=== PATIENT | female | born 1980 | race Caucasian/White ===

== ENCOUNTER 2020-11-22 15:14 | Emergency (ER) | payer OTHER, SELFPAY ==
[2020-11-22 15:20] VITALS: BP 124/76; PULSE 105; RESP 16; TEMP 36.6; O2SAT 99
--- NOTE | 2020-11-22 15:39 | ED.HA ---
HPI - Headache General Chief Complaint: Headache Stated Complaint: migraine Time Seen by Provider: 11/22/20 15:41 History of Present Illness HPI Narrative: 39-year-old female patient with a longstanding history of migraine headaches presents to ER with 3 day history of migraine. She describes this headache is a typical migraine which is diffuse and is associated with nausea but no emesis. The patient has apparently been under care of a neurologist in [place] and has received Botox injections in the past. She states that because of some insurance conflicts she is not receiving them right now and hence is on a more vague once a month. In addition to that the patient has also been taking hydrocodone and baclofen and was seen recently at another facility where she was given Toradol and diphenhydramine but eventually ended up having a prescription for tramadol and Fioricet and Medrol Dosepak by her neurologist. The patient describes the pain as continuous and rates that at 10/10. She does report mild photophobia. She denies any phonophobia. Patient is a smoker. Patient denies any COVID exposure,. patient has not received COVID vaccinations so far Related Data Home Medications Medication Instructions Recorded Confirmed albuterol sulfate 2 puff INHALATION PRN 11/22/20 11/22/20 baclofen 20 mg PO PRN PRN 11/22/20 11/22/20 kutuwsqkad-hcecwesoqzovy-nefs 2 cap PO Q8-10H PRN 11/22/20 11/22/20 clonazepam 2 mg PO PRN 11/22/20 11/22/20 erenumab-aooe [Aimovig 70 mg SUBCUT MONTHLY 11/22/20 11/22/20 Autoinjector] hydrochlorothiazide 25 mg PO DAILY 11/22/20 11/22/20 hydrocodone-acetaminophen 1 tablet PO Q4-5H PRN 11/22/20 11/22/20 losartan 100 mg PO DAILY 11/22/20 11/22/20 methylprednisolone 4 mg PO DAILY 11/22/20 11/22/20 tramadol 100 mg PO Q8-10H PRN 11/22/20 11/22/20 trazodone 150 mg PO HS PRN 11/22/20 11/22/20 venlafaxine 75 mg PO DAILY 11/22/20 11/22/20 venlafaxine 150 mg PO DAILY 11/22/20 11/22/20 Allergies Allergy/AdvReac Type Severity Reaction Status Date / Time Penicillins Allergy Unknown Unknown Verified 11/22/20 15:38 gabapentin Allergy Hallucinati Verified 11/22/20 15:38 ng risperidone Allergy Unknown Verified 11/22/20 15:38 Review of Systems Review of Systems: All systems reviewed & are unremarkable except as noted in HPI and below PMFSH Past Medical History Medical History (Updated 11/22/20 @ 15:54 by Rozina Escobar MD) Anxiety Hypertension Migraine Family History Family History Mother Hypertension Cerebrovascular accident Social History Social History Second hand tobacco smoke exposure: No Smoking end date: 05/07/11 Alcohol intake: never Exam Narrative: Exam Narrative: Patient is alert and appears in no acute distress. Vital signs are stable. Patient is afebrile and O2 sat is normal. HEENT: head is nontender. Pupils are midsize and equal and reactive to light. EOMs are intact. Neck is supple. Oral mucous membranes are moist. No facial asymmetry is noted. Neck is supple. Lungs are clear bilaterally. Heart tones are regular. Abdomen is soft and nontender. Extremities are within normal limits. Speech is clear. Gait and station are normal. Patient is oriented x4. Gross motor and sensory is intact. Cranial nerves are intact. Patient has a normal mood and affect. Course Course Emergency Course: Patient is advised that she will be getting a cocktail of ketorolac with Reglan and dexamethasone as well as diphenhydramine. No IV hydration is recommended at this time since the patient has been able to drink and keep the fluids down. Patient's medications currently include tramadol, Fioricet and hydrocodone and their side effects have been discussed with the patient. The patient claims that she is taking any tramadol and losartan and Klonopin at this time. She has been encouraged to follow-up with her neurologist.
[2020-11-22] MEDS: KETOROLAC (*BKC) 60 MG/2 ML VIAL IM (16:05)
[2020-11-22] MEDS: diphenhydrAMINE HCl INJ 50 MG/ML VIAL 25 MG IM (16:05)
[2020-11-22] MEDS: METOCLOPRAMIDE HCL INJ 10 MG/2 ML VIAL IM (16:10)
[2020-11-22] MEDS: DEXAMETHASONE SOD PHOS INJ 4 MG/ML VIAL 10 MG IM (16:12)
[2020-11-22 16:30] VITALS: BP 123/86; PULSE 84; RESP 16; TEMP 36.6; O2SAT 100
== END 2020-11-22 16:30 | disposition home or self-care (01) ==
PROVIDERS: Emergency Provider Emergency Medicine; PCP Family Medicine
DX: G43.909 Migraine, unspecified, not intractable, without status migrainosus (principal)
CPT/HCPCS: 96372; 99283; 99284; J1100; J1200; J1885; J2765

== ENCOUNTER 2023-02-14 23:33 | Emergency (ER) | payer OTHER, SELFPAY ==
--- NOTE | ~2023-02-14 | CT_ITS ---
Non-contrast Head CT History: Headache Technique: Axial non-contrast imaging of the brain was performed. Dose reduction technique was used on this scan by utilizing automated exposure control and iterative reconstruction technique. The dose -length product (DLP) was 605.33 mGy-cm. Findings: There is no evidence of intracranial hemorrhage, mass lesion, or acute infarct. Brain par enchyma appears normal. The ventricles and subarachnoid spaces are normal in size. The calvarium ap pears normal. The visualized paranasal sinuses and mastoid air cells are clear. Impression: No significant abnormality seen. Reviewed, dictated and finalized at location . Impression: No significant abnormality seen.
--- NOTE | ~2023-02-14 | CT_ITS ---
Noncontrast CT scan of the cervical spine Technique: Multiple contiguous axial [address] images of the cervical spine were obtained and rec onstructed in 2D sagittal and coronal planes on the acquisition scanner. Dose reduction technique was used on this scan by utilizing automated exposure control, adjustment of the mA and/or kV according to patient size. The dose-length product (DLP) was 537.69 mGy-cm. Clinical History: Pain Findings: No fractures or dislocations. Unremarkable visualized bony structures. The intervertebral disc spaces are preserved. No prevertebral soft tissue swelling. Impression: No fracture or subluxation of the cervical spine. Reviewed, dictated and finalized at location . Impression: No fracture or subluxation of the cervical spine.
[2023-02-14 23:38] VITALS: BP 131/97; PULSE 102; RESP 20; TEMP 36.8; O2SAT 100
[2023-02-15] VITALS (29 sets, daily range): BP systolic 106–126; BP diastolic 70–88; PULSE 88–99; RESP 14–92; O2SAT 94–100
[2023-02-15 01:11] LABS: Influenza A QL RT-PCR Negative (Negative); Influenza B QL RT-PCR Negative (Negative); SARS-CoV-2 RNA PCR Negative (Negative)
[2023-02-15] MEDS: SODIUM CHLORIDE 0.9% IV 1,000 ML 999 ML IV CONT (01:20)
[2023-02-15] MEDS: KETOROLAC 30 MG/ML VIAL (*BKC) IV PUSH (01:21)
[2023-02-15] MEDS: ACETAMINOPHEN 500 MG TABLET 1000 MG PO (01:21)
[2023-02-15] MEDS: diphenhydrAMINE HCl INJ 50 MG/ML VIAL 25 MG IV PUSH (01:21)
[2023-02-15] MEDS: METOCLOPRAMIDE HCL INJ 10 MG/2 ML VIAL IV PUSH (01:21)
--- NOTE | 2023-02-15 02:03 | ED.GENADULT ---
HPI - General Adult General Chief complaint: Upper Respiratory Infection <DELANEY Seymour Last Filed: 02/15/23 03:01> Stated complaint: headache, neck pain, bodyaches <DELANEY Seymour Last Filed: 02/15/23 03:01> Time Seen by Provider: 02/15/23 00:36 <DELANEY Seymour Last Filed: 02/15/23 03:01> Source: patient <DELANEY Seymour Last Filed: 02/15/23 03:01> Mode of arrival: ambulatory <DELANEY Seymour Last Filed: 02/15/23 03:01> Limitations: no limitations <DELANEY Seymour Last Filed: 02/15/23 03:01> History of Present Illness HPI narrative: Patient is a 42-year-old female who presents to the ED with report of headache. Patient reports having a persistent migraine headache for the last 3 days. She notes a history of migraines and states this feels similar, but states it does not typically last this long. She has tried ibuprofen, Toradol, Tylenol, Excedrin without improvement. Pain has been constant. Mostly right-sided. Extends into her neck. She also reports photophobia, phonophobia, occasional dizziness, nausea, body aches. She denies vomiting, fevers, syncope, focal weakness or numbness, abdominal pain, cough or cold symptoms. <DELANEY Seymour Last Filed: 02/15/23 03:01> Related Data Home medications: Home Medications Medication Instructions Recorded Confirmed albuterol sulfate 90 mcg/actuation 2 puff inhalation PRN 11/22/20 11/22/20 aerosol inhaler baclofen 20 mg tablet 20 mg PO PRN PRN Back Pain 11/22/20 11/22/20 zagymxvzrk-ziqifxcviasys-ijyugzlp 2 cap PO Q8-10H PRN Migraine 11/22/20 11/22/20 50 mg-325 mg-40 mg capsule Headache clonazepam 2 mg tablet 2 mg PO PRN 11/22/20 11/22/20 erenumab-aooe 70 mg/mL 70 mg subcut MONTHLY 11/22/20 11/22/20 subcutaneous auto-injector (Aimovig Autoinjector) hydrochlorothiazide 25 mg tablet 25 mg PO DAILY 11/22/20 11/22/20 hydrocodone 5 mg-acetaminophen 325 1 tablet PO Q4-5H PRN Migraine 11/22/20 11/22/20 mg tablet Headache losartan 100 mg tablet 100 mg PO DAILY 11/22/20 11/22/20 methylprednisolone 4 mg tablets in 4 mg PO DAILY 11/22/20 11/22/20 a dose pack tramadol 50 mg tablet 100 mg PO Q8-10H PRN Migraine 11/22/20 11/22/20 Headache trazodone 150 mg tablet 150 mg PO HS PRN Insomnia 11/22/20 11/22/20 venlafaxine 150 mg 150 mg PO DAILY 11/22/20 11/22/20 capsule,extended release 24 hr venlafaxine 75 mg capsule,extended 75 mg PO DAILY 11/22/20 11/22/20 release 24 hr <DELANEY Seymour Last Filed: 02/15/23 03:01> Allergies/adverse reactions: Allergies Allergy/AdvReac Type Severity Reaction Status Date / Time Penicillins Allergy Unknown Unknown Verified 11/22/20 15:38 gabapentin Allergy Hallucinati Verified 11/22/20 15:38 ng risperidone Allergy Unknown Verified 11/22/20 15:38 <DELANEY Seymour Last Filed: 02/15/23 03:01> Review of Systems Review of Systems: CONSTITUTIONAL: Denies fever, chills, or sweats. EYES: See HPI. CARDIOVASCULAR: Denies chest pain, palpitations, or edema. RESPIRATORY: Denies cough or dyspnea. GASTROINTESTINAL: See HPI. GENITOURINARY: Denies dysuria or hematuria. SKIN: Denies rash or itching. MUSCULOSKELETAL: Reports neck pain, myalgia. NEUROLOGIC: See HPI. <DELANEY Seymour Last Filed: 02/15/23 03:01> All systems reviewed & are unremarkable except as noted in HPI and below <DELANEY Seymour Last Filed: 02/15/23 03:01> [facility] Past Medical History Medical History: Medical History Anxiety Hypertension Migraine <Marisela Willis PA-C - Last Filed: 02/15/23 03:01> Family History Family History: Family History Mother Hypertension Cerebrovascular accident <Marisela Willis PA-C - Last Filed
[2023-02-15] MEDS: MAGNESIUM SULF 1 GM/D5W 100 ML 1 GM/100 ML BAG IVPB (03:01)
[2023-02-15] MEDS: CYCLOBENZAPRINE HCL 5 MG TABLET PO (03:01)
[2023-02-15 05:23] LABS: Barbiturate Screen Urine Negative (Negative); Benzodiazepines Screen Urine Negative (Negative)
[2023-02-15 05:25] LABS: Cannabinoid Screen Urine Negative (Negative); Cocaine Screen Urine Negative (Negative); Methadone Screen Urine Negative (Negative); Opiate Screen Urine Negative (Negative); Phencyclidine Screen Urine Negative (Negative)
[2023-02-15 05:28] LABS: Appearance Urine Turbid (Clear); Bacteria Urine 1+ /hpf; Bilirubin Urine Negative (Negative); Blood Urine Negative (Negative); Color Urine Yellow (Yellow); Glucose Urine UA Negative (Negative); Ketones Urine Negative (Negative); Leukocyte Esterase Ur 2+ LEU/UL (Negative); Need Manual Microscopic Reviewed; Nitrate Urine Negative (Negative); Non Pathogenic Casts 0-2; Protein Urine Negative (Negative); Specific Grav Ur 1.017 (1.001-1.035); Squamous Epithelial Cell Urine Many /hpf (Few); WBC Urine 21-50 /hpf; pH Urine 6.5 (5.0-9.0)
[2023-02-15 05:33] LABS: Add Urine Microscopic? YES
[2023-02-15 05:59] LABS: Amphetamine Screen Urine Positive (Negative)
== END 2023-02-15 05:49 | disposition home or self-care (01) ==
PROVIDERS: Physician Assistant; Emergency Provider Emergency Medicine; PCP Family Medicine
DX: G43.909 Migraine, unspecified, not intractable, without status migrainosus (principal); N39.0 Urinary tract infection, site not specified; I10 Essential (primary) hypertension; F41.9 Anxiety disorder, unspecified; Z87.891 Personal history of nicotine dependence
CPT/HCPCS: 70450; 72125; 80307; 81001; 87086; 87636; 96361; 96365; 96375; 99284; A9270; J1100; J1200; J1885; J2765; J3475; J7030